=== PATIENT | female | born 2000 | race American Indian/Alaskan Native ===

== ENCOUNTER 2019-09-13 08:50 | Emergency (ER) | payer SELFPAY ==
--- NOTE | 2019-09-13 12:05 | Emergency Department Report ---
ED Dysuria HPI - HPI Chief Complaint: Urogenital-Female Stated Complaint: VAGINAL DISCOMFORT DUE TO MEDS Time Seen by Provider: 09/13/19 12:04 Duration: 2 Days Severity: Mild Symptoms: Dysuria: Yes, Frequency: No, Suprapubic Pain: No, Flank Pain: Yes, Fever: No, Hematuria: No, Abdominal Pain: No, Previous UTI's: No Other History: 18 yo with dysuria and flank pain. Recent antibiotics. Not concerned for STI. On menses currently. No abd pain. No fever or chills. Taking PO. ED Review of Systems ROS: Stated complaint: VAGINAL DISCOMFORT DUE TO MEDS Other details as noted in HPI Comment: All other systems reviewed and negative ED Past Medical Hx - Past Medical History Previous Medical History?: No - Surgical History Past Surgical History?: No - Family History Family history: no significant - Social History Smoking Status: Never Smoker Substance Use Type: None - Medications Home Medications: Home Medications Medication Instructions Recorded Confirmed Last Taken Type Fluconazole [Diflucan TAB] 150 mg PO ONCE #2 tablet 09/13/19 Unknown Rx Sulfamethoxazole/Trimethoprim 1 each PO BID #10 tablet 09/13/19 Unknown Rx [Bactrim DS TAB] Dysuria Exam - Exam General: Vital signs noted. No distress. Alert and acting appropriately. Exam: No Moist Mucous Membranes, No CVA Tenderness, No Abdominal Tenderness, No Rigidity or Guarding ED Course Vital Signs 09/13/19 09:09 Temperature 98.2 F Pulse Rate 77 Respiratory 18 Rate Blood Pressure 134/76 O2 Sat by Pulse 100 Oximetry ED Medical Decision Making - Medical Decision Making Lab Results 09/13/19 Range/Units 12:28 Urine Color Yellow (Yellow) Urine Turbidity Slightly-cloudy (Clear) Urine pH 8.0 H (5.0-7.0) Ur Specific [place] 1.021 (1.003-1.030) Urine Protein 30 mg/dl (Negative) mg/dL Urine Glucose (UA) Neg (Negative) mg/dL Urine Ketones Neg (Negative) mg/dL Urine Blood Lg (Negative) Urine Nitrite Neg (Negative) Urine Bilirubin Neg (Negative) Urine Urobilinogen < 2.0 (<2.0) mg/dL Ur Leukocyte Esterase Tr (Negative) Urine WBC (Auto) 10.0 H (0.0-6.0) /HPF Urine RBC (Auto) > 182.0 (0.0-6.0) /HPF U Epithel Cells (Auto) 10.0 (0-13.0) /HPF Urine Mucus Few /HPF Urine HCG, Qual Negative (Negative) Vital Signs 09/13/19 09:09 Temperature 98.2 F Pulse Rate 77 Respiratory 18 Rate Blood Pressure 134/76 O2 Sat by Pulse 100 Oximetry ua noted non ill no fever ambulatory taking po preg neg abd exam benign no cva tenderness dc home with rx and pcp follow up - Differential Diagnosis ro preg/uti Critical care attestation.: If time is entered above; I have spent that time in minutes in the direct care of this critically ill patient, excluding procedure time. ED Disposition Clinical Impression: UTI (urinary tract infection), Vaginitis Disposition: DC- TO HOME OR SELFCARE Is pt being admited?: No Does the pt Need Aspirin: No Condition: Stable Instructions: Urinary Tract Infection in Women (ED) Additional Instructions: diet as tolerated stay well hydrated med as ordered today follow up pcp next week referral below Prescriptions: Sulfamethoxazole/Trimethoprim [Bactrim DS TAB] 1 each PO BID #10 tablet Fluconazole [Diflucan TAB] 150 mg PO ONCE #2 tablet Referrals: KAMAR FLYNN MD [Staff Physician] - 3-5 Days Forms: Work/School Release Form(ED) Time of Disposition: 13:52
[2019-09-13 13:16] LABS: Bilirubin,Urine NEG (Negative); Blood,Urine LG (Negative); Color,Urine Yellow (Yellow); Mucus,Urine FEW /HPF; Urobilinogen,Urine < 2.0 mg/dL (<2.0)
[2019-09-13 13:18] LABS: RBC,Urine > 182.0 /HPF (0.0-6.0)
[2019-09-13 13:19] LABS: HCG Qualitative,Urine Negative (Negative)
[2019-09-13 14:19] VITALS: BP 131/90
== END 2019-09-13 14:18 | disposition home or self-care (01) ==
LOC: ED 08:50
DX: N39.0 Urinary tract infection, site not specified (principal); N76.0 Acute vaginitis
CPT/HCPCS: 81001; 81025; 87086; 99283